=== PATIENT | male | born 1965 | race Caucasian/White ===

== ENCOUNTER 2017-05-09 14:47 | Emergency (ER) ==
[2017-05-09 14:47] VITALS: BMI 22.1
[2017-05-09 14:56] VITALS: BP 113/73; TEMP 97.5
--- NOTE | 2017-05-09 15:21 | ED.PDOC ---
General ED Provider: Dr. JOSS CLEARY Chief Complaint: Finger Pain/Injury Stated Complaint: pateint states he fell few days ago landing on the right hand jamming his right middle finger since then the pain has been severe and unable to fully extend the distal finger. Time Seen by Physician: 15:21 Mode of Arrival: Walk-In Information Source: Patient Exam Limitations: No limitations Primary Care Provider: CHAI GARCIA Nursing and Triage Documentation Reviewed and Agree: Yes Review of Systems - Review Of Systems Constitutional: Reports: No symptoms Eyes: Reports: No symptoms Ears, Nose, Mouth, Throat: Reports: No symptoms Respiratory: Reports: No symptoms Cardiac: Reports: No symptoms GI: Reports: No symptoms : Reports: No symptoms Musculoskeletal: Reports: Joint pain Skin: Reports: No symptoms Neurological: Reports: No symptoms Endocrine: Reports: No symptoms Hematologic/Lymphatic: Reports: No symptoms All Other Systems: Reviewed and Negative Past Medical History - Past Medical History Previously Healthy: Yes Endocrine: Reports: None Cardiovascular: Reports: None Respiratory: Reports: None Hematological: Reports: None Gastrointestinal: Reports: None Genitourinary: Reports: None Neuro/Psych: Reports: None Musculoskeletal: Reports: Joint Pain Cancer: Reports: None Other Pertinent Past Medical History: NOSE DEVIATED SEPTUM, APPENDECTOMY, herniated disc - Surgical History General Surgical History: Reports: Appendectomy, Orthopedic (bursa sack removed right elbow.), Other (NOSE DEVIATED SEPTUM, bursa sack removed right elbow.) - Family History Family History: Reports: Unknown - Social History Smoking Status: Current every day smoker Hx Substance Use: No Alcohol Screening: Occasionally Physical Exam - Physical Exam Appearance: Ill-appearing, Thin Ill-appearing: None Pain Distress: Moderate Eyes: NERISSA, EOMI, Conjunctiva clear ENT: Ears normal, Nose normal, Oropharynx normal Neck: Supple Respiratory: Airway patent, Breath sounds clear, Breath sounds equal, Respirations nonlabored Cardiovascular: RRR, Pulses normal, No rub, No murmur Musculoskeletal: Limited ROM Skin: Warm, Dry, Normal color Neurological: Sensation intact, Motor intact, Reflexes intact, Cranial nerves intact, Alert, Oriented Psychiatric: Anxious Critical Care Note - Critical Care Note Total Time (mins): 0 Course - Course Orders, Labs, Meds: Orders Category Date Time Status FINGER(S) RIGHT MIN 2V Stat RADS 05/09/17 15:16 Completed Vital Signs: Temp Pulse Resp BP Pulse Ox 05/09/17 14:47 97.5 F L 74 18 113/73 98 Departure - Departure Time of Disposition: 15:48 Disposition: HOME SELF-CARE Discharge Problem: Avulsion fracture of distal phalanx of finger Qualifiers: Encounter type: initial encounter Fracture type: closed Qualified Code(s): S62.639A - Displaced fracture of distal phalanx of unspecified finger, initial encounter for closed fracture Instructions: Finger Fracture (ED) Condition: Fair Pt referred to PMD for follow-up: Yes (Othro ) Additional Instructions: Call your Orthopedic doctor in 1 day to schedule an APt Use splint all the time. Prescriptions: Hydrocodone/Acetaminophen [[place] 5-325 Tablet] 1 tab PO Q6HR PRN #20 tablet PRN Reason: PAIN Allergies/Adverse Reactions: Allergies codeine Adverse Reaction (Verified 05/09/17 14:51) Home Medications: Ambulatory Orders Hydrocodone/Acetaminophen [[place] 5-325 Tablet] 1 tab PO Q6HR PRN #20 tablet Disposition Discussed With: Patient
--- NOTE | 2017-05-09 15:38 | DI ---
EXAM: Third digit of the right hand three views HISTORY: Injury, pain FINDINGS: There is an avulsion fracture off of the dorsal base of the distal phalanx with moderate di straction. The bony fragment measures about 0.4 cm and extends into the articular surfaces. There i s no yanci joint dislocation. No other injuries are seen. IMPRESSION: Avulsion fracture base of the distal phalanx.
== END 2017-05-09 15:58 | disposition home or self-care (01) ==
LOC: ED 14:47
DX: S62.639A Displaced fracture of distal phalanx of unspecified finger, initial encounter for closed fracture (principal); W19.XXXA Unspecified fall, initial encounter; F17.210 Nicotine dependence, cigarettes, uncomplicated
CPT/HCPCS: 99282

== ENCOUNTER 2017-06-05 08:12 | Inpatient (IN) ==
[2017-06-05] MEDS ORDERED: MORPHINE 10 MG/ML SYRINGE IVP STA (08:16)
[2017-06-05] MEDS ORDERED: ZOFRAN 4 MG/2 ML IVP STA (08:17)
[2017-06-05 08:25] LABS: BASOPHILS # (AUTO) 0.1 K/uL (0-0.2); BASOPHILS % (AUTO) 0.6 % (0.0-3.0); EOSINOPHILS # (AUTO) 0.4 K/ul (0.0-0.7); EOSINOPHILS % (AUTO) 3.1 % (0.0-7.0); HEMATOCRIT 42.8 % (42.0-52.0); HEMOGLOBIN 14.4 g/dl (14.0-18.0); IMMATURE GRANULOCYTE % (AUTO) 0.3 % (0.0-5.0); LYMPHOCYTES # (AUTO) 3.2 K/uL (0.60-3.4); LYMPHOCYTES % (AUTO) 22.5 (10.0-50.0); MEAN CORPUSCULAR HEMOGLOBIN 31.8 pg (27.0-31.0); MEAN CORPUSCULAR HGB CONC 33.6 (31.8-35.4); MEAN CORPUSCULAR VOLUME 94.5 fl (80.0-94.0); MONOCYTES # (AUTO) 0.8 K/uL (0.4-2.0); MONOCYTES % (AUTO) 5.4 (0-10); NEUTROPHILS # (AUTO) 9.8 K/ul (2.0-6.9); NEUTROPHILS % (AUTO) 68.1; PLATELET COUNT 331 10^3/uL (140-440); RED BLOOD COUNT 4.53 10^6/ul (4.70-6.10); WHITE BLOOD COUNT 14.36 K/ul (4.2-10.2)
[2017-06-05 09:01] LABS: ALANINE AMINOTRANSFERASE 76 U/L (12-78); ALBUMIN 4.1 g/dL (3.4-5.0); ALBUMIN/GLOBULIN RATIO 1.37; ALKALINE PHOSPHATASE 115 U/L (50-136); ANION GAP 12.3; ASPARTATE AMINO TRANSFERASE 125 U/L (15-37); BILIRUBIN,TOTAL 0.96 mg/dL (0.00-1.20); BLOOD UREA NITROGEN 18 mg/dL (7-18); CALCIUM 9.6 mg/dL (8.2-10.2); CARBON DIOXIDE 27 mmol/L (21-32); CHLORIDE 104 mmol/L (98-107); CREATINE KINASE 133 U/L; GLUCOSE 206 mg/dL (70-100); POTASSIUM 3.3 mmol/L (3.5-5.1); SODIUM 140 mmol/L (136-145); TOTAL PROTEIN 7.1 g/dL (6.4-8.2)
[2017-06-05 09:17] LABS: AMYLASE 3048 U/L (25-115)
--- NOTE | 2017-06-05 09:28 | CT ---
EXAM: CT abdomen pelvis with contrast TECHNIQUE: Helical axial CT of the abdomen and pelvis was performed with contrast with coronal and s agittal reconstructions. COMPARISON: Chest CT from today HISTORY: Abdominal pain FINDINGS: There is enlargement and surrounding edema involving the entire pancreas consistent with acute inters titial pancreatitis. There is no evidence for walled off necrosis or pseudocyst. There is no free air, free fluid or bowel wall thickening or edema or pathologic lymph nodes or obstr uction or ileus. The liver, spleen, and adrenal glands show no acute abnormality. Lung bases are well-aerated. There is no hiatal hernia. There is some sludge in the gallbladder. There is no inflammation. There is no biliary or pancreatic ductal dilatation. There are no suspicious renal masses or large cysts and no hydronephrosis. There are no kidney stones . Both ureters demonstrate normal course and caliber. There is no filling defect in the urinary blad onesimo. There is a high riding testicle on the right. The appendix is not definitely seen. There are no colonic diverticula. There are no abdominal wall h ernias. There is fairly extensive calcific atherosclerosis of the aorta with no aneurysm. There are n o acute osseous abnormalities. IMPRESSION: 1. Acute interstitial pancreatitis with no evidence for pseudocyst or walled off necrosis. 2. Gallbladder sludge with no inflammation. Report called to Dr. Hwang
--- NOTE | 2017-06-05 09:30 | CT ---
EXAM: CT chest without contrast TECHNIQUE: Helical axial CT of the chest was performed without contrast with coronal and sagittal rec onstructions. COMPARISON: CT abdomen pelvis from same day HISTORY: Abdominal pain FINDINGS: Lung parenchyma: There is no mass or nodule or large effusion or infiltrate. There is emphysematous c hange in the lung apices. Mediastinum: There are a few nonpathologic mediastinal lymph nodes. There is old granulomatous disea se. No significant coronary calcifications. There is no pericardial effusion. There is calcific ather osclerosis of the aorta. There is no aortic aneurysm. Upper Abdomen: Acute pancreatitis per CT abdomen pelvis report. Osseous structures: Nothing acute. Surrounding soft tissues including the thyroid gland are normal. No supraclavicular or axillary adeno kenny. IMPRESSION: 1. No acute abnormality in the chest. 2. Emphysema. 3. Acute pancreatitis. See CT pelvis report for details. Report called to Dr. Hwang
[2017-06-05 09:32] LABS: CREATINE KINASE MB 3.8 ng/ml (0.0-3.6)
--- NOTE | 2017-06-05 09:39 | US ---
EXAM: Limited right upper quadrant ultrasound. HISTORY: Right upper quadrant pain. COMPARISON: CT from same day TECHNIQUE: Farnsworth scale, color and Doppler ultrasound evaluation of the right upper quadrant. FINDINGS: LIVER: There is heterogeneous echotexture without solid mass lesions or intrahepatic ductal dilatatio n. Portal venous flow is antegrade. Liver size is 10.5 x 16.2 cm. GALLBLADDER: Distended there are small stones and sludge. Gallbladder wall thickness is 0.4 cm. COMMON BILE DUCT: 0.5 cm. PANCREAS: Not well seen There is no ascites or visualized adenopathy. IMPRESSION: 1. Distended gallbladder with multiple small stones and sludge. No definite acute inflammation is s een however.
[2017-06-05] MEDS ORDERED: ZOFRAN 4 MG/2 ML IVP PRN (09:50)
[2017-06-05] MEDS ORDERED: MORPHINE 4 MG/ML VIAL IVP PRN (09:50)
--- NOTE | 2017-06-05 09:54 | ED.PDOC ---
General ED Provider: Dr. JC ARAUJO Chief Complaint: Abdominal Pain Stated Complaint: abdominal pain epigastric Time Seen by Physician: 08:19 Mode of Arrival: Walk-In Information Source: Patient Exam Limitations: No limitations Primary Care Provider: CHAI GARCIA Nursing and Triage Documentation Reviewed and Agree: Yes (DENIED TRAUMA AND ETOH ABUSE OR USE ) GI Complaint Exam - Abdominal Pain Complaint/Exam Onset: Sudden Duration: TODAY Symptoms Are: Still present Timing: Constant Initial Severity: Severe Current Severity: Severe Location of Pain: Epigastric Radiates To: Denies: Chest, Back, Flank, LLQ, RLQ, Inguinal Character: Reports: Cramping Aggravating: Reports: Movement, Food, Position Alleviating: Reports: Rest, Position Associated Signs and Symptoms: Reports: Decreased appetite, Nausea. Denies: Diaphoresis, Fever, Cough, Chest pain, Dizziness, Back pain, Constipation, Blood in stool, Dysuria, Urinary frequency, Decreased urine output, Discharge, Vomiting, Diarrhea, Decreased activity Related History: Reports: Similar episode AAA Risk Factors: Reports: None Cardiac Risk Factors: Reports: None Testicular Torsion Risk Factors: Reports: None Surgical Obstruction Risk Factors: Reports: None Related Surgical History: Reports: None Abdominal Findings: Present: None Differential Diagnoses: Appendicitis, Bowel Obstruction, Constipation, Diverticulitis, Gastroenteritis, Hepatitis, Pancreatitis, Renal Colic, Ureteral Stone Review of Systems - Review Of Systems Constitutional: Reports: No symptoms Eyes: Reports: No symptoms Ears, Nose, Mouth, Throat: Reports: No symptoms Respiratory: Reports: No symptoms Cardiac: Reports: No symptoms GI: Reports: Abdominal pain, Nausea : Reports: No symptoms Musculoskeletal: Reports: No symptoms Skin: Reports: No symptoms Neurological: Reports: No symptoms Endocrine: Reports: No symptoms Hematologic/Lymphatic: Reports: No symptoms All Other Systems: Reviewed and Negative Past Medical History - Past Medical History Previously Healthy: Yes Endocrine: Reports: None Cardiovascular: Reports: None Respiratory: Reports: None Hematological: Reports: None Gastrointestinal: Reports: None Genitourinary: Reports: None Neuro/Psych: Reports: None Musculoskeletal: Reports: Joint Pain Cancer: Reports: None Other Pertinent Past Medical History: NOSE DEVIATED SEPTUM, APPENDECTOMY, herniated disc - Surgical History General Surgical History: Reports: Appendectomy, Orthopedic (bursa sack removed right elbow.), Other (NOSE DEVIATED SEPTUM, bursa sack removed right elbow.) - Family History Family History: Reports: Unknown - Social History Smoking Status: Current some day smoker Hx Substance Use: No Alcohol Screening: None - Immunizations Tetanus Shot up to Date: No Physical Exam - Physical Exam Appearance: Well-nourished Ill-appearing: Moderate Pain Distress: Severe Eyes: NERISSA, EOMI, Conjunctiva clear ENT: Ears normal, Nose normal, Oropharynx normal Respiratory: Airway patent, Breath sounds clear, Breath sounds equal, Respirations nonlabored Cardiovascular: RRR, Pulses normal, No rub, No murmur GI/: Tender (EPIGASTRIC WITH GAURDING ) Musculoskeletal: Normal strength, ROM intact, No edema, No calf tenderness Skin: Warm, Dry, Normal color Neurological: Sensation intact, Motor intact, Reflexes intact, Cranial nerves intact, Alert, Oriented Psychiatric: Affect appropriate, Mood appropriate Interpretation - Radiology Interpretation Radiology Interpretation By: Radiologist Radiology Results: Positive (ACUTE PANCERATITIS) Physician Notification - Case Discussed Physician Notified: LILI Time of Notification: 09:55 (BARRY) Admit To: Inpatient Critical Care Note - Critical Care Note Total Time (mins): 0 Course - Course Hematology/Chemistry: 06/05/17 08:18 06/05/17 08:18 Orders, Labs, Meds: Lab Review 06/05/17 06/05/17 08:18 08:18 WBC 14.36 H RBC 4.53 L Hgb 14.4 Hct 42.8 MCV 94.5 H MCH 31.8 H MCHC 33.6 RDW Coeff of Rosanne 12.4 Plt Count 331 Immature Gran % (Auto) 0.3 Neut % (Auto) 68.1 Lymph % (Auto) 22.5 [place] % (Auto) 5.4 Eos % (Auto) 3.1 Baso % (Auto) 0.6 Immature Gran # (Auto) 0.1 Neut # 9.8 H Lymph # 3.2 [place] # 0.8 Eos # 0.4 Baso # 0.1 Sodium 140 Potassium 3.3 L Chloride 104 Carbon Dioxide 27 Anion Gap 12.3 BUN 18 Creatinine 1.20 H Estimated GFR (MDRD) 64.00 BUN/Creatinine Ratio 15.00 Glucose 206 H Calcium 9.6 Total Bilirubin 0.96 AST 125 H ALT 76 Alkaline Phosphatase 115 Total Creatine Kinase 133 CK-MB (CK-2) 3.8 H CK-MB (CK-2) % 2.47270 Troponin I < 0.0100 Total Protein 7.1 Albumin 4.1 Globulin 3.0 Albumin/Globulin Ratio 1.37 Amylase 3048 H* Lipase Pending Orders Category Date Time Status ADMIT PATIENT INPATIENT .TO MEDSURG (MONITORED BED) ADMISSION 06/05/17 09: 47 Ordered EKG-(ED ONLY) Stat CARDIO 06/05/17 08:32 Completed EKG-(ED ONLY) Stat CARDIO 06/05/17 08:32 Completed EKG-(IP & OP ONLY) DAILY CARDIO 06/06/17 06:00 Ordered EKG-(IP & OP ONLY) DAILY CARDIO 06/07/17 06:00 Ordered EKG-(IP & OP ONLY) DAILY CARDIO 06/08/17 06:00 Ordered ACTIVITY .BR with BRP CARE 06/05/17 09:47 Ordered INTAKE & OUTPUT Q8HR CARE 06/05/17 09:47 Ordered NPO REMINDER: IMAGING ONCE CARE 06/05/17 08:18 Ordered NPO REMINDER: LAB TEST ONCE CARE 06/05/17 09:51 Ordered TELEMETRY MONITORING TELE CARE 06/05/17 09:48 Ordered VITAL SIGNS Q8HR CARE 06/05/17 09:47 Ordered NOTHING BY MOUTH DIETARY 06/05/17 Lunch Ordered ED IV/MEDIPORT/POWERPORT .ONCE EMERGENCY 06/05/17 08:15 Ordered AMYLASE Stat LAB 06/05/17 08:13 Ordered BLOOD CULTURE (ED ONLY) Stat LAB 06/05/17 Ordered CBC W/ AUTO DIFF DAILY@0600 LAB 06/06/17 06:00 Ordered CBC W/ AUTO DIFF DAILY@0600 LAB 06/07/17 06:00 Ordered CBC W/ AUTO DIFF Stat LAB 06/05/17 08:13 Ordered COMPREHENSIVE METABOLIC PANEL DAILY@0600 LAB 06/06/17 06:00 Ordered COMPREHENSIVE METABOLIC PANEL DAILY@0600 LAB 06/07/17 06:00 Ordered COMPREHENSIVE METABOLIC PANEL Stat LAB 06/05/17 08:13 Ordered CREATINE KINASE Stat LAB 06/05/17 08:13 Ordered ETOH LEVEL [BLOOD ALCOHOL] Stat LAB 06/05/17 09:51 Ordered LIPASE Stat LAB 06/05/17 08:13 Ordered LIPID PANEL Stat LAB 06/05/17 09:51 Ordered TROPONIN I Stat LAB 06/05/17 08:13 Ordered 0.9 % Sodium Chloride [Saline Flush] MEDS 06/05/17 08:15 Ordered 1 syr IVF PRN PRN Morphine Sulfate [Morphine 10 mg/ml Syringe] MEDS 06/05/17 08:16 Stat 4 mg IVP ONCE STA Morphine Sulfate [Morphine 4 mg/ml Vial] MEDS 06/05/17 09:50 Ordered 4 mg IVP Q6H PRN Ondansetron HCl/Pf [Zofran 4 mg/2 ml] MEDS 06/05/17 08:17 Stat 4 mg IVP ONCE STA Ondansetron HCl/Pf [Zofran 4 mg/2 ml] MEDS 06/05/17 09:50 Ordered 4 mg IVP Q6H PRN Piperacillin Sodium/Tazobactam [Zosyn 3.375 gm] 3.375 MEDS 06/05/17 12:00 Ordered gm 0.9 % Sodium Chloride [Sodium Chloride] 100 ml IV Q6HR Sodium Chloride 0.9% [Sodium Chloride] 1,000 ml MEDS 06/05/17 10:00 Ordered IV 75 mls/hr CT ABDOMEN/PELVIS WO CONTRAST Stat RADS 06/05/17 08:[address] CHEST W/O CONTRAST Stat RADS 06/05/17 08:13 Ordered ULTRASOUND ABDOMEN, RT. UPPER QUAD [U/S ABDOMEN, RT. RADS 06/05/17 08:18 Ordered UPPER QUAD] Stat Medications Generic Name Dose Route Start Last Admin Trade Name Freq PRN Reason Stop Dose Admin Sodium Chloride 1,000 mls @ 75 mls/hr 06/05/17 10:00 Sodium Chloride IV .[id number] YUNG Piperacillin Sod/Tazobactam 100 mls @ 100 mls/hr 06/05/17 12:00 Sod 3.375 gm/ Sodium Chloride IV Q6HR YUNG Morphine Sulfate 4 mg 06/05/17 09:50 Morphine 4 Mg/Ml Vial IVP Q6H PRN Analgesia Ondansetron HCl 4 mg 06/05/17 09:50 Zofran 4 Mg/2 Ml IVP Q6H PRN Nausea / Vomiting Sodium Chloride 1 syr 06/05/17 08:15 Saline Flush IVF PRN PRN To flush IV Discontinued Medications Generic Name Dose Route Start Last Admin Trade Name Freq PRN Reason Stop Dose Admin Morphine Sulfate 4 mg 06/05/17 08:16 06/05/17 08:23 Morphine 10 Mg/Ml Syringe IVP 06/05/17 08:17 4 mg ONCE STA Administration Ondansetron HCl 4 mg 06/05/17 08:17 06/05/17 08:22 Zofran 4 Mg/2 Ml IVP 06/05/17 08:18 4 mg ONCE STA Administration Vital Signs: Temp Pulse Resp BP Pulse Ox 06/05/17 08:13 95 F L 50 L 16 105/64 98 Departure - Departure Time of Disposition: 09:54 Disposition: ADMITTED INPATIENT Discharge Problem: Pancreatitis Qualifiers: Chronicity: acute Pancreatitis type: unspecified pancreatitis type Acute pancreatitis complication: unspecified Qualified Code(s): K85.90 - Acute pancreatitis without necrosis or infection, unspecified Instructions: Pancreatitis (ED) Condition: Good Pt referred to PMD for follow-up: Yes Allergies/Adverse Reactions: Allergies codeine Adverse Reaction (Verified 05/09/17 14:51) Home Medications: Ambulatory Orders 1 [No Reported Medications] 06/05/17
[2017-06-05 10:08] LABS: CHOL/HDL RATIO 4.4 (4.5-6.4)
[2017-06-05] MEDS ORDERED: ZOSYN 3.375 GM 3.375 GM in SODIUM CHLORIDE 100 ML IV STA (10:49)
[2017-06-05] MEDS: SODIUM CHLORIDE 1,000 ML IV SCH (10:50)
[2017-06-05 10:52] VITALS: BMI 19.3
[2017-06-05] MEDS: DILAUDID 2 MG/ML SYRINGE IVP PRN ×3 (11:03→21:13)
[2017-06-05 13:11] LABS: ALBUMIN 3.9 g/dL (3.4-5.0); ALBUMIN/GLOBULIN RATIO 1.18; ANION GAP 10.4; BILIRUBIN,TOTAL 0.39 mg/dL (0.00-1.20); BUN/CREATININE RATIO 17.14; CALCIUM 9.6 mg/dL (8.2-10.2); CREATININE 1.05 mg/dL (0.60-1.10); POTASSIUM 4.4 mmol/L (3.5-5.1); TOTAL PROTEIN 7.2 g/dL (6.4-8.2)
[2017-06-05 14:59] LABS: LIPASE 14379 U/L (8-78)
[2017-06-05] MEDS: PROTONIX IV IVP SCH ×2 (15:07→21:08)
[2017-06-05] MEDS: CARAFATE PO SCH ×3 (15:12→21:08)
[2017-06-05] MEDS: ZOSYN 3.375 GM 3.375 GM in SODIUM CHLORIDE 100 ML IV SCH ×2 (17:58→23:29)
[2017-06-06] MEDS: DILAUDID 2 MG/ML SYRINGE IVP PRN ×6 (01:14→20:26)
[2017-06-06] MEDS: SODIUM CHLORIDE 1,000 ML IV SCH ×2 (03:01→18:15)
[2017-06-06] MEDS: ZOSYN 3.375 GM 3.375 GM in SODIUM CHLORIDE 100 ML IV SCH ×3 (05:30→18:08)
[2017-06-06] MEDS: CARAFATE PO SCH ×4 (05:31→20:20)
[2017-06-06 06:28] LABS: BASOPHILS % (AUTO) 0.2 % (0.0-3.0); EOSINOPHILS % (AUTO) 0.1 % (0.0-7.0); HEMATOCRIT 46.8 % (42.0-52.0); HEMOGLOBIN 15.9 g/dl (14.0-18.0); IMMATURE GRANULOCYTE % (AUTO) 0.4 % (0.0-5.0); LYMPHOCYTES # (AUTO) 1.7 K/uL (0.60-3.4); LYMPHOCYTES % (AUTO) 10.2 (10.0-50.0); MEAN CORPUSCULAR VOLUME 94.2 fl (80.0-94.0); MONOCYTES # (AUTO) 0.7 K/uL (0.4-2.0); MONOCYTES % (AUTO) 4.2 (0-10); NEUTROPHILS # (AUTO) 13.8 K/ul (2.0-6.9); NEUTROPHILS % (AUTO) 84.9; PLATELET COUNT 263 10^3/uL (140-440); RED BLOOD COUNT 4.97 10^6/ul (4.70-6.10); WHITE BLOOD COUNT 16.21 K/ul (4.2-10.2)
[2017-06-06 06:50] LABS: ALBUMIN 3.5 g/dL (3.4-5.0); ALBUMIN/GLOBULIN RATIO 1.13; ANION GAP 12.2; BILIRUBIN,TOTAL 0.53 mg/dL (0.00-1.20); BUN/CREATININE RATIO 16.83; CALCIUM 9.1 mg/dL (8.2-10.2); CREATININE 1.01 mg/dL (0.60-1.10); POTASSIUM 4.2 mmol/L (3.5-5.1); TOTAL PROTEIN 6.6 g/dL (6.4-8.2)
[2017-06-06] MEDS: PROTONIX IV IVP SCH ×2 (08:36→20:20)
[2017-06-06] MEDS ORDERED: CARDIZEM INJ IVP STA (17:58)
[2017-06-06] MEDS: LOVENOX SUBCUT SCH (18:07)
[2017-06-06] MEDS ORDERED: CARDIZEM INJ IVP PRN (19:06)
[2017-06-07] MEDS: DILAUDID 2 MG/ML SYRINGE IVP PRN ×6 (00:18→21:03)
[2017-06-07] MEDS: ZOSYN 3.375 GM 3.375 GM in SODIUM CHLORIDE 100 ML IV SCH ×4 (00:18→17:59)
[2017-06-07] MEDS: CARAFATE PO SCH ×4 (05:41→21:03)
[2017-06-07 07:46] LABS: BASOPHILS # (AUTO) 0.1 K/uL (0-0.2); BASOPHILS % (AUTO) 0.3 % (0.0-3.0); EOSINOPHILS % (AUTO) 0.1 % (0.0-7.0); HEMATOCRIT 41.6 % (42.0-52.0); HEMOGLOBIN 14.1 g/dl (14.0-18.0); IMMATURE GRANULOCYTE % (AUTO) 0.7 % (0.0-5.0); LYMPHOCYTES # (AUTO) 1.5 K/uL (0.60-3.4); LYMPHOCYTES % (AUTO) 8.6 (10.0-50.0); MEAN CORPUSCULAR HEMOGLOBIN 31.6 pg (27.0-31.0); MEAN CORPUSCULAR HGB CONC 33.9 (31.8-35.4); MEAN CORPUSCULAR VOLUME 93.3 fl (80.0-94.0); MONOCYTES # (AUTO) 0.9 K/uL (0.4-2.0); MONOCYTES % (AUTO) 5.2 (0-10); NEUTROPHILS # (AUTO) 14.8 K/ul (2.0-6.9); NEUTROPHILS % (AUTO) 85.1; PLATELET COUNT 213 10^3/uL (140-440); RED BLOOD COUNT 4.46 10^6/ul (4.70-6.10); WHITE BLOOD COUNT 17.42 K/ul (4.2-10.2)
[2017-06-07 08:09] LABS: ALBUMIN/GLOBULIN RATIO 0.91; ANION GAP 13.8; BILIRUBIN,TOTAL 0.86 mg/dL (0.00-1.20); BUN/CREATININE RATIO 15.85; CALCIUM 8.8 mg/dL (8.2-10.2); CREATININE 0.82 mg/dL (0.60-1.10); POTASSIUM 3.8 mmol/L (3.5-5.1); TOTAL PROTEIN 6.3 g/dL (6.4-8.2)
[2017-06-07] MEDS: LOVENOX SUBCUT SCH (08:45)
[2017-06-07] MEDS: PROTONIX IV IVP SCH ×2 (09:06→21:02)
--- NOTE | 2017-06-07 09:52 | CT ---
Exam: CT of the abdomen pelvis without intravenous contrast. Comparison: 06/05/2017. Reason for exam: Abdominal pain. FINDINGS: Image interpretation is limited by the lack of intravenous contrast administration. Developing air space opacity in the left lung base with bilateral pleural effusions. High density material is seen within the stomach. The liver, spleen, and adrenal glands appear grossl y unremarkable within limitations of a noncontrasted evaluation. Inflammatory changes are seen in the pancreatic head and adjacent duodenum with surrounding free flui d. There is a new finding of pericholecystic free fluid that may be reactive from the adjacent pancr eatitis or represent gallbladder disease. No hydronephrosis, hydroureter, or nephrolithiasis in either kidney. There is atherosclerotic disease of the aorta and distal arterial vasculature. No focal small bowel dilatation or transition point. There is a moderate amount of pelvic free fluid . No intra-abdominal free air The bladder appears grossly unremarkable. No suspicious appearing osteoblastic or osteolytic lesion. Impression: 1. Bilateral pleural effusions with a developing left lower lobe airspace opacity consistent with pn eumonia. 2. Similar appearing inflammatory changes in the mid abdomen consistent with pancreatitis. Evaluati on is limited by the lack of intravenous contrast administration. 3. A new finding of pericholecystic free fluid. Imaging findings may represent acute gallbladder pa thology or reactivity from the adjacent pancreatitis. If clinical concern exists, ultrasound evaluat ion of the right upper quadrant may be performed for further characterization
[2017-06-07] MEDS: SODIUM CHLORIDE 1,000 ML IV SCH ×2 (13:50→13:53)
[2017-06-07] MEDS: DUONEB NEB SCH ×2 (16:55→23:09)
[2017-06-07] MEDS ORDERED: DUONEB NEB ONE (16:55)
[2017-06-08] MEDS: ZOSYN 3.375 GM 3.375 GM in SODIUM CHLORIDE 100 ML IV SCH ×3 (00:09→14:39)
[2017-06-08] MEDS: DILAUDID 2 MG/ML SYRINGE IVP PRN ×7 (00:12→22:43)
[2017-06-08] MEDS: DUONEB NEB SCH ×4 (05:15→20:42)
[2017-06-08 05:21] LABS: BASOPHILS % (AUTO) 0.2 % (0.0-3.0); EOSINOPHILS # (AUTO) 0.2 K/ul (0.0-0.7); EOSINOPHILS % (AUTO) 1.3 % (0.0-7.0); HEMATOCRIT 35.4 % (42.0-52.0); HEMOGLOBIN 12.1 g/dl (14.0-18.0); IMMATURE GRANULOCYTE % (AUTO) 0.7 % (0.0-5.0); LYMPHOCYTES # (AUTO) 1.6 K/uL (0.60-3.4); LYMPHOCYTES % (AUTO) 11.6 (10.0-50.0); MEAN CORPUSCULAR HEMOGLOBIN 31.9 pg (27.0-31.0); MEAN CORPUSCULAR HGB CONC 34.2 (31.8-35.4); MEAN CORPUSCULAR VOLUME 93.4 fl (80.0-94.0); MONOCYTES # (AUTO) 0.8 K/uL (0.4-2.0); MONOCYTES % (AUTO) 5.6 (0-10); NEUTROPHILS # (AUTO) 10.9 K/ul (2.0-6.9); NEUTROPHILS % (AUTO) 80.6; PLATELET COUNT 177 10^3/uL (140-440); RED BLOOD COUNT 3.79 10^6/ul (4.70-6.10); WHITE BLOOD COUNT 13.47 K/ul (4.2-10.2)
[2017-06-08 05:37] LABS: ALBUMIN 2.7 g/dL (3.4-5.0); ALBUMIN/GLOBULIN RATIO 0.87; ANION GAP 11.2; BILIRUBIN,TOTAL 0.7 mg/dL (0.00-1.20); BUN/CREATININE RATIO 13.92; CALCIUM 8.4 mg/dL (8.2-10.2); CREATININE 0.79 mg/dL (0.60-1.10); POTASSIUM 3.2 mmol/L (3.5-5.1); TOTAL PROTEIN 5.8 g/dL (6.4-8.2)
[2017-06-08] MEDS: SODIUM CHLORIDE 1,000 ML IV SCH ×2 (05:59→21:11)
[2017-06-08] MEDS: CARAFATE PO SCH ×4 (06:00→21:11)
[2017-06-08] MEDS: PROTONIX IV IVP SCH ×2 (08:37→21:11)
[2017-06-08] MEDS: LOVENOX SUBCUT SCH (08:38)
[2017-06-08] MEDS: K-DUR PO SCH (14:40)
[2017-06-08] MEDS: ROCEPHIN 1 GM in SODIUM CHLORIDE 50 ML IV SCH (15:48)
[2017-06-08 15:53] LABS: CREATINE KINASE 156 U/L
[2017-06-08 15:58] LABS: CREATINE KINASE MB 1.1 ng/ml (0.0-3.6)
[2017-06-08] MEDS: FLAGYL 500 MG/100 ML 500 MG in PREMIX 100 ML NS 1 BAG IV SCH ×2 (16:46→21:11)
[2017-06-09] MEDS: DILAUDID 2 MG/ML SYRINGE IVP PRN ×5 (03:41→20:35)
[2017-06-09] MEDS: DUONEB NEB SCH ×4 (04:50→23:50)
[2017-06-09 04:51] LABS: BASOPHILS % (AUTO) 0.3 % (0.0-3.0); EOSINOPHILS # (AUTO) 0.4 K/ul (0.0-0.7); EOSINOPHILS % (AUTO) 3.3 % (0.0-7.0); HEMATOCRIT 32.1 % (42.0-52.0); IMMATURE GRANULOCYTE % (AUTO) 0.6 % (0.0-5.0); LYMPHOCYTES # (AUTO) 1.6 K/uL (0.60-3.4); LYMPHOCYTES % (AUTO) 14.3 (10.0-50.0); MEAN CORPUSCULAR HEMOGLOBIN 32.1 pg (27.0-31.0); MEAN CORPUSCULAR HGB CONC 34.3 (31.8-35.4); MEAN CORPUSCULAR VOLUME 93.6 fl (80.0-94.0); MONOCYTES # (AUTO) 0.7 K/uL (0.4-2.0); MONOCYTES % (AUTO) 6.5 (0-10); NEUTROPHILS # (AUTO) 8.5 K/ul (2.0-6.9); PLATELET COUNT 181 10^3/uL (140-440); RED BLOOD COUNT 3.43 10^6/ul (4.70-6.10); WHITE BLOOD COUNT 11.39 K/ul (4.2-10.2)
[2017-06-09 05:21] LABS: ALBUMIN 2.5 g/dL (3.4-5.0); ALBUMIN/GLOBULIN RATIO 0.76; ANION GAP 12.3; BILIRUBIN,TOTAL 0.55 mg/dL (0.00-1.20); BUN/CREATININE RATIO 11.42; CALCIUM 8.3 mg/dL (8.2-10.2); CREATININE 0.7 mg/dL (0.60-1.10); POTASSIUM 3.3 mmol/L (3.5-5.1); TOTAL PROTEIN 5.8 g/dL (6.4-8.2)
[2017-06-09] MEDS: CARAFATE PO SCH ×4 (05:43→20:35)
[2017-06-09] MEDS: FLAGYL 500 MG/100 ML 500 MG in PREMIX 100 ML NS 1 BAG IV SCH ×3 (05:43→20:35)
[2017-06-09] MEDS: K-DUR PO SCH (09:21)
[2017-06-09] MEDS: LOVENOX SUBCUT SCH (09:21)
[2017-06-09] MEDS: ROCEPHIN 1 GM in SODIUM CHLORIDE 50 ML IV SCH (09:21)
[2017-06-09] MEDS: PROTONIX IV IVP SCH ×2 (09:21→20:35)
--- NOTE | 2017-06-09 10:01 | HP ---
DATE OF SERVICE: 06/05/17 CHIEF COMPLAINT: Abdominal pain. HISTORY OF PRESENT ILLNESS: This is a 51-year-old male who woke up in the middle of the night with epigastric pain, severe, 10/10, nausea and vomiting came to the emergency room seen by Dr. Hwang in the emergency room. BP was 105/64. Labs were done which showed white count left shift with 14,000, potassium 3.3, amylase 3000, lipase 19,000. CT scan of abdomen and pelvis showed acute pancreatitis. Right upper quadrant ultrasound did show the gallbladder stones, cholelithiasis but no biliary obstruction. At that time, the patient was admitted to the hospital for IV hydration and pain management for acute pancreatis. REVIEW OF SYSTEMS: CONSTITUTIONAL: No fever, no chills. Jittery feeling. HEENT: Normal. ENDOCRINE: No weight gain; no weight loss. CVS: No chest pain. No PND, no orthopnea. No shortness of breath. No PND, no orthopnea. RESPIRATORY: No cough, no congestion. No hemoptysis. GI: Abdominal pain. Nausea, No vomiting. No melena. : No hematuria. No polyuria. MUSCULOSKELETAL: No joint swelling. PSYCHIATRIC: Not anxious. No depression. No suicidal thoughts. No homicidal thoughts. SKIN: Intact, no open lesions. PAST MEDICAL HISTORY: Deviated nasal septum History of kidney stones PAST SURGICAL HISTORY: Appendectomy Septoplasty Excision of bursa on elbow PERSONAL HISTORY: The patient does smoke. No alcohol. No drugs. Works in the [employer]. FAMILY HISTORY: High blood pressure. MEDICATIONS: (HOME) None ALLERGIES: CODEINE PHYSICAL EXAMINATION: V/S: BP 105/64, respiratory rate 16, heart rate 50, temperature 95.0. HEENT: Atraumatic, normocephalic. No scleral icterus. Pallor positive . Mucosa dry. NECK: Supple. No JVD, no bruit. No lymphadenopathy. No thyromegaly. HEART: S1, S2 normal. No murmur. No cyanosis or clubbing. No ascites. LUNGS: Decreased air entry; basilar crackles. No rales or rhonchi. ABDOMEN: Soft, epigastric discomfort is present. Bowel sounds are sluggish.. No CVA tenderness. No rigidity or guarding. EXTREMITIES: No cyanosis, clubbing or pedal edema. MUSCULOSKELETAL: Normal joints, no swelling. NEUROLOGIC: The patient is awake and alert. SKIN: Intact; no open lesions. LYMPHATIC: No lymph nodes palpable. LABS: White count 14.36, hemoglobin 14.4, hematocrit 42.8, platelet count 331. Sodium 140, potassium 3.3, chloride 104, bicarb 27, BUN 18, creatinine 1.20, glucose 206. AST 125, total bilirubin 0.96. Amylase 3,048, lipase 19,904. Blood alcohol is negative. CT abdomen and pelvis showed acute pancreatitis, gallbladder with gallbladder stones. ASSESSMENT: 1. ACUTE PANCREATITIS MOSTLY PASSING GALLSTONE 2. DEHYDRATION 3. HYPOKALEMIA PLAN: 1. Admit the patient to the regular floor 2. CBC, CMP today and daily 3. Cardiac enzymes and troponin 4. Dilaudid 1 to 2 mg q.6hr p.r.n. 5. Piperacillin/Tazobactam 3,37 q.6hr 6. IV fluids 7. Carafate 8. Protonix 40 mg p.o. b.i.d. 9. Zofran 10. Daily I & O TIME SPENT: MORE THAN 75 minutes today MTDD
--- NOTE | 2017-06-09 11:49 | PN ---
DATE OF SERVICE: 06/06/17 SUBJECTIVE: This patient was admitted with acute pancreatitis. Amylase and lipase is getting better. The patient is still having pain needing Dilaudid. REVIEW OF SYSTEMS: CONSTITUTIONAL: No fever, no chills. HEENT: Normal. ENDOCRINE: No weight gain, no weight loss. CVS: No angina symptoms. No CHF symptoms. No palpitations. No atypical chest pain for CAD. No shortness of breath. No PND, no orthopnea. RESPIRATORY: No cough, no hemoptysis. GI: Epigastric pain. No nausea, no vomiting. : No hematuria. No polyuria. MUSCULOSKELETAL:. No joint swelling. PSYCHIATRIC: Not anxious. No depression. No suicidal thoughts. No homicidal thoughts. SKIN: Intact. No rash. PHYSICAL EXAMINATION: V/S: BP 130/83, respiratory rate 22, heart rate 112, temperature 99.8, saturation 97 on room air. HEENT: Normocephalic, atraumatic. Mucosa dry, pallor positive, no icterus. NECK: Supple. No JVD, no carotid bruit. No lymphadenopathy. LUNGS: Clear to auscultation. No rales or rhonchi. HEART: S1, S2 normal. No S3. No murmur, gallop or regurgitation. ABDOMEN: Soft. Epigastric discomfort and tenderness present. Bowel sounds are not present. No rigidity. No rebound or guarding. No CVA tenderness. EXTREMITIES: No clubbing, cyanosis or pedal edema. MUSCULOSKELETAL: No joint swelling. NEUROLOGIC: Awake, alert, oriented times three. No focal deficit. LYMPHATIC: No lymph nodes palpable. SKIN: Intact. LABS: White count 16.21, hemoglobin 15.2, hematocrit 46.8, platelet count 263. Sodium 138, potassium 4.2, chloride 103, bicarb 27, BUN 17, creatinine 1.01. Amylase is 597, lipase 714. ASSESSMENT: 1. ACUTE SEVERE PANCREATITIS 2. CHOLELITHIASIS 3. SINUS TACHYCARDIA PLAN: 1. Cardizem 5 mg IV push times one dose, may repeat if the heart rate goes more than 120 and the blood pressure and do not give if systolic blood pressure is less than 100. 2. Continue IV fluids 3. Lovenox for DVT prophylaxis 4. Zosyn 5. IV fluids 6. Protonix 7. Will get CT scan of abdominal and pelvis in the morning TIME SPENT: More than 35 minutes MTDD
[2017-06-09] MEDS: SODIUM CHLORIDE 1,000 ML IV SCH (11:50)
--- NOTE | 2017-06-09 11:58 | PN ---
DATE OF SERVICE: 06/07/17 SUBJECTIVE: Admitted with acute pancreatitis, still having pain rated 9 to 10 out of 10, not passing gas. He was able to walk some today. He has needed Dilaudid 1 to 2 mg every [address] scan showed acute pancreatitis, pericholecystic fluid and inflammation. REVIEW OF SYSTEMS: CONSTITUTIONAL: No fever, no chills. HEENT: Normal. ENDOCRINE: No weight gain, no weight loss. CVS: No angina symptoms. No CHF symptoms. No palpitations. No atypical chest pain for CAD. No shortness of breath. No PND, no orthopnea. RESPIRATORY: No cough, no hemoptysis. GI: No nausea, no vomiting. Abdominal pain. : No hematuria. No polyuria. MUSCULOSKELETAL:. No joint swelling. PSYCHIATRIC: Not anxious. No depression. No suicidal thoughts. No homicidal thoughts. SKIN: Intact. No rash. PHYSICAL EXAMINATION: V/S: Temperature 99.9, BP 135/81, respiratory rate 20, heart rate 108, saturation 98. HEENT: Normocephalic, atraumatic. Mucosa dry. NECK: Supple. No JVD, no carotid bruit. No lymphadenopathy. LUNGS: Decreased entry, basilar crackles. No rales or rhonchi. HEART: Sinus tachy. S1, S2 normal. No S3. No murmur, gallop or regurgitation. ABDOMEN: Soft, epigastric tenderness. Bowel sounds are not present. No rigidity. No rebound or guarding. No CVA tenderness. EXTREMITIES: No clubbing, cyanosis or pedal edema. MUSCULOSKELETAL: No joint swelling. NEUROLOGIC: Awake, alert, oriented times three. No focal deficit. LYMPHATIC: No lymph nodes palpable. SKIN: Intact. LABS: Sodium 137, potassium 3.8, chloride 99, bicarb 26, BUN 13, creatinine 0.82. White count 17.42, hemoglobin 14.1, hematocrit 41.6, platelet count 213. Amylase, lipase is [address] abdomen and pelvis showed pleural effusion with questionable pneumonia. ASSESSMENT: 1. ACUTE PANCREATITIS 2. RIGHT LOWER LOBE PNEUMONIA WITH PLEURAL EFFUSION 3. LEUKOCYTOSIS PLAN: 1. Duonebs 2. Zosyn 3. IV fluids 4. Dilaudid 5. Repeat Cardizem 5 mg IV push TIME SPENT: More than 35 minutes MTDD
[2017-06-10] MEDS: DILAUDID 2 MG/ML SYRINGE IVP PRN (00:08)
[2017-06-10] MEDS: SODIUM CHLORIDE 1,000 ML IV SCH ×4 (02:11→22:22)
[2017-06-10] MEDS: FLAGYL 500 MG/100 ML 500 MG in PREMIX 100 ML NS 1 BAG IV SCH ×3 (04:39→20:40)
[2017-06-10] MEDS: DUONEB NEB SCH ×4 (05:38→21:00)
[2017-06-10] MEDS: CARAFATE PO SCH ×4 (06:09→20:40)
[2017-06-10] MEDS: K-DUR PO SCH (08:45)
[2017-06-10] MEDS: ROCEPHIN 1 GM in SODIUM CHLORIDE 50 ML IV SCH (08:45)
[2017-06-10] MEDS: LOVENOX SUBCUT SCH (08:46)
[2017-06-10 09:12] LABS: BASOPHILS % (AUTO) 0.4 % (0.0-3.0); EOSINOPHILS # (AUTO) 0.4 K/ul (0.0-0.7); EOSINOPHILS % (AUTO) 3.5 % (0.0-7.0); HEMATOCRIT 31.4 % (42.0-52.0); HEMOGLOBIN 10.8 g/dl (14.0-18.0); IMMATURE GRANULOCYTE % (AUTO) 0.5 % (0.0-5.0); LYMPHOCYTES # (AUTO) 1.2 K/uL (0.60-3.4); LYMPHOCYTES % (AUTO) 11.2 (10.0-50.0); MEAN CORPUSCULAR HEMOGLOBIN 32.3 pg (27.0-31.0); MEAN CORPUSCULAR HGB CONC 34.4 (31.8-35.4); MONOCYTES # (AUTO) 0.5 K/uL (0.4-2.0); MONOCYTES % (AUTO) 5.1 (0-10); NEUTROPHILS # (AUTO) 8.4 K/ul (2.0-6.9); NEUTROPHILS % (AUTO) 79.3; PLATELET COUNT 211 10^3/uL (140-440); RED BLOOD COUNT 3.34 10^6/ul (4.70-6.10); WHITE BLOOD COUNT 10.59 K/ul (4.2-10.2)
[2017-06-10] MEDS ORDERED: DILAUDID 2 MG/ML SYRINGE IVP PRN (09:33)
[2017-06-10 09:34] LABS: ALBUMIN 2.5 g/dL (3.4-5.0); ALBUMIN/GLOBULIN RATIO 0.74; ANION GAP 12.7; BILIRUBIN,TOTAL 0.4 mg/dL (0.00-1.20); CALCIUM 8.8 mg/dL (8.2-10.2); CREATININE 0.68 mg/dL (0.60-1.10); POTASSIUM 3.7 mmol/L (3.5-5.1); TOTAL PROTEIN 5.9 g/dL (6.4-8.2)
[2017-06-10 09:35] LABS: BUN/CREATININE RATIO 13.23
[2017-06-10] MEDS: PROTONIX IV IVP SCH ×2 (09:48→20:40)
[2017-06-11] MEDS: DUONEB NEB SCH ×2 (05:08→10:26)
[2017-06-11 05:30] VITALS: BP 110/70; TEMP 98
[2017-06-11] MEDS: FLAGYL 500 MG/100 ML 500 MG in PREMIX 100 ML NS 1 BAG IV SCH (05:50)
[2017-06-11] MEDS: CARAFATE PO SCH (05:50)
[2017-06-11] MEDS: ROCEPHIN 1 GM in SODIUM CHLORIDE 50 ML IV SCH (08:45)
[2017-06-11] MEDS: K-DUR PO SCH (08:47)
[2017-06-11] MEDS: LOVENOX SUBCUT SCH (08:48)
--- NOTE | 2017-06-11 14:03 | PN ---
DATE OF SERVICE: 06/08/17 SUBJECTIVE: The patient was admitted with acute pancreatitis, still hurting, pain rated as 8 to 10 out of 10. He is passing gas. He is able to keep the clear liquids down. REVIEW OF SYSTEMS: CONSTITUTIONAL: Fever with temperature of 100. No chills. HEENT: Normal. ENDOCRINE: No weight gain, no weight loss. CVS: No angina symptoms. No CHF symptoms. No palpitations. No atypical chest pain for CAD. No shortness of breath. No PND, no orthopnea. RESPIRATORY: No cough, no hemoptysis. GI: Abdominal pain. No nausea, no vomiting. : No hematuria. No polyuria. MUSCULOSKELETAL:. No joint swelling. PSYCHIATRIC: Not anxious. No depression. No suicidal thoughts. No homicidal thoughts. SKIN: Intact. No rash. PHYSICAL EXAMINATION: V/S: BP 149/78, respiratory rate 20, heart rate 99, temperature 100. Saturation 95% on room air. HEENT: Normocephalic, atraumatic. Mucosa dry. NECK: Supple. No JVD, no carotid bruit. No lymphadenopathy. LUNGS: Decreased basilar crackles, left side more than the right. Clear to auscultation. No rales or rhonchi. HEART: S1, S2 normal. No S3. No murmur, gallop or regurgitation. ABDOMEN: Epigastric tenderness. No rigidity, guarding or CVA tenderness. EXTREMITIES: No clubbing, cyanosis or pedal edema. MUSCULOSKELETAL: No joint swelling. NEUROLOGIC: Awake, alert, oriented times three. No focal deficit. LYMPHATIC: No lymph nodes palpable. SKIN: Intact. LABS: White count 13.47, hemoglobin 12.1, hematocrit 35.4, platelet count 177. Sodium 134, potassium 3.2, chloride 97, bicarb 29, BUN 11, creatinine 0.79, glucose 115. Amylase 106, lipase 66. White count 13.47, hemoglobin 12.1, hematocrit 35.4 , platelet count 177. ASSESSMENT: 1. ACUTE PANCREATITIS 2. LEFT LOWER LOBE PNEUMONIA WITH PLEURAL EFFUSION 3. ANEMIA PLAN: 1. Will stop the Piperacillin/Tazobactam 2. Will start the patient on Rocephin and Flagyl 3. Breathing treatments 4. IV fluids 5. Out of bed to chair 6. Activity as tolerated 7. Daily I & O's TIME SPENT: More than 35 minutes today MTDD
--- NOTE | 2017-06-24 14:33 | PN ---
DATE OF SERVICE: 06/09/17 SUBJECTIVE: The patient is admitted with acute pancreatitis. Amylase and lipase is getting better. He is more active now. Left lower lobe pneumonia, coughing some. He is still having fever up to 100.2 on antibiotics. REVIEW OF SYSTEMS: CONSTITUTIONAL: Fever. No chills. HEENT: Normal. ENDOCRINE: No weight gain, no weight loss. CVS: No angina symptoms. No CHF symptoms. No palpitations. No atypical chest pain for CAD. No shortness of breath. No PND, no orthopnea. RESPIRATORY: Cough. No hemoptysis. GI: No nausea, no vomiting. No abdominal pain. : No hematuria. No polyuria. MUSCULOSKELETAL:. No joint swelling. PSYCHIATRIC: Not anxious. No depression. No suicidal thoughts. No homicidal thoughts. SKIN: Intact. No rash. PHYSICAL EXAMINATION: V/S: BP 106/62, respiratory rate 20, heart rate 87, temperature 99.6. Saturation 94 on room air. HEENT: Normocephalic, atraumatic. Mucosa dry. Pallor positive. No icterus. NECK: Supple. No JVD, no carotid bruit. No lymphadenopathy. LUNGS: Decreased basilar crackles, left more than right. No rales or rhonchi. HEART: S1, S2 normal. No S3. No murmur, gallop or regurgitation. ABDOMEN: Epigastric discomfort and tenderness present. Bowel sounds active. No rigidity. No rebound or guarding. No CVA tenderness. EXTREMITIES: No clubbing, cyanosis or pedal edema. MUSCULOSKELETAL: No joint swelling. NEUROLOGIC: Awake, alert, oriented times three. No focal deficit. LYMPHATIC: No lymph nodes palpable. SKIN: Intact. LABS: White count 11.39, hemoglobin 11.0, hematocrit 32.1, platelet count 181. Sodium 136, potassium 3.3, chloride 101, bicarb 26, BUN 8, creatinine 0.70. Amylase and lipase 37 and 34. ASSESSMENT: 1. ACUTE PANCREATITIS MOST LIKELY FROM GALLBLADDER STONES 2. CHOLELITHIASIS 3. LEFT LOWER LOBE PNEUMONIA 4. ANEMIA PLAN: 1. Continue Rocephin 2. Flagyl 3. Duonebs 4. Dilaudid for pain 5. Out of bed to chair 6. Regular diet 7. Lovenox for DVT prophylaxis TIME SPENT: More than 36 minutes MTDD
--- NOTE | 2017-06-24 14:40 | PN ---
DATE OF SERVICE: 06/10/17 SUBJECTIVE: The patient is admitted with acute pancreatitis, left lower lobe pneumonia. Breathing is some better, was able to keep food down. The patient had temperature yesterday around 2 p.m. of 100.2. After that 99.6 and 99.1. Otherwise feeling a lot better. He was able to keep the food down. REVIEW OF SYSTEMS: CONSTITUTIONAL: No fever, no chills. HEENT: Normal. ENDOCRINE: No weight gain, no weight loss. CVS: No angina symptoms. No CHF symptoms. No palpitations. No atypical chest pain for CAD. No shortness of breath. No PND, no orthopnea. RESPIRATORY: No cough, no hemoptysis. GI: No nausea, no vomiting. No abdominal pain. : No hematuria. No polyuria. MUSCULOSKELETAL:. No joint swelling. PSYCHIATRIC: Not anxious. No depression. No suicidal thoughts. No homicidal thoughts. SKIN: Intact. No rash. PHYSICAL EXAMINATION: V/S: BP 107/65, respiratory rate 16, heart rate 84, temperature 99.6, saturation 96 on room air. HEENT: Normocephalic, atraumatic. Mucosa dry. Pallor positive. No icterus. NECK: Supple. No JVD, no carotid bruit. No lymphadenopathy. LUNGS: Bilateral entry decreased and basilar crackles, left more than right. No rales or rhonchi. HEART: S1, S2 normal. No S3. No murmur, gallop or regurgitation. ABDOMEN: Soft. Epigastric discomfort is present. Bowel sounds active. No rigidity. No rebound or guarding. No CVA tenderness. EXTREMITIES: No clubbing, cyanosis or pedal edema. MUSCULOSKELETAL: No joint swelling. NEUROLOGIC: Awake, alert, oriented times three. No focal deficit. LYMPHATIC: No lymph nodes palpable. SKIN: Intact. LABS: Sodium 137, potassium 3.7, chloride 102, bicarb 26, BUN 9, creatinine 0.68, glucose 126. WBC 10.59, hemoglobin 10.8, hematocrit 31.4, platelet count 211. ASSESSMENT: 1. ACUTE PANCREATITIS MOSTLY FROM GALLSTONES 2. LEFT LOWER LOBE PNEUMONIA 3. PLEURAL EFFUSION 4. ANEMIA FROM HEMODILUTION PLAN: 1. Continue Rocephin and Flagyl. 2. IV fluids. 3. Duonebs. 4. We are trying to target a pain free period of 24 hours before discharge. TIME SPENT: More than 35 minutes MTDD
--- NOTE | 2017-06-25 11:35 | DS ---
DATE OF SERVICE: 06/11/17 FINAL DIAGNOSIS: 1. Acute pancreatitis mostly from passing gallbladder stone 2. Cholelithiasis with the pericolic fluid 3. Left lower lobe pneumonia 4. Anemia 5. Dehydration DISCHARGE INSTRUCTIONS: Discharge the patient home. Followup in the [facility] within 3-[address] Perla on June 16. Increase fluids NEW PRESCRIPTIONS: Keflex 500mg twice a day for 5 days. Prednisone 10mg twice a day for 5 days Zantac 150mg twice a day Flagyl 500mg Q 8 hours DIET INSTRUCTIONS: Low Fat Frequent small meals ACTIVITY: Get plenty of rest SMOKING: Current some day smoker DISEASE SPECIFIC EDUCATION: Pancreatitis, Diet restriction and alcohol restriction been discussed and verbalized understanding. HOSPITAL COURSE: Rufino Avilez who is a 51 year old white came to the emergency room with the severe epigastric pain, nausea and vomiting. Found to have WBC 14,000, potassium was 3.3, amylase 3,000, Lipase 14,379. CT scan did show the acute pancreatitis. At that time the patient being admitted to the hospital and started on the Dilaudid every 4 hour initially but the pain so severe we had to give ever 2 hours. IV fluids. The patient did not have any history of alcoholism so alcoholic pancreatis was not suspected. In review of Cholelithiasis on the gallbladder I expected passing Gallstone but there was no elevated total bilirubin so the patient was not transfused and the patient was admitted to the [facility] and started on the IV antibiotics. The patient was getting Zosyn from the beginning but started having the fever of 100-102 at that time antibiotic changed to the Rocephin and Flagyl. Repeat CAT scan of the abdomen showed the left lower lobe pneumonia and pleural effusion. The patient was given the breathing treatments which did gradually the patient made better. Up and about walking. Clear liquids started, tolerated then advanced to the soft diet and regular diet, did not have any complications. As patient was doing good and fever subsided. At that time patient being discharged home. TIME SPENT: MORE THAN 65 MINUTES MTDD
== END 2017-06-11 11:47 | disposition home or self-care (01) | DRG 438 ==
LOC: ED 08:12 → MEDSURG B 10:15
PROVIDERS: ADMIT Emergency Medicine; ATTEND Emergency Medicine
DX: K85.90 Acute pancreatitis without necrosis or infection, unspecified (principal); J18.1 Lobar pneumonia, unspecified organism; J91.8 Pleural effusion in other conditions classified elsewhere; K80.20 Calculus of gallbladder without cholecystitis without obstruction; E86.0 Dehydration; E87.6 Hypokalemia; D64.9 Anemia, unspecified; R50.9 Fever, unspecified; R00.0 Tachycardia, unspecified; F17.200 Nicotine dependence, unspecified, uncomplicated; Z87.442 Personal history of urinary calculi
CPT/HCPCS: 36415; 80053; 80061; 80307; 82150; 82550; 82553; 83690; 84484; 85025; 87040; 93005; 93010; 94640; 96374; 96375; 99285

== ENCOUNTER 2017-11-30 13:11 | Emergency (ER) ==
[2017-11-30 13:21] VITALS: BP 113/65; TEMP 97.1; BMI 20.3
--- NOTE | 2017-11-30 14:04 | DI ---
EXAM: RIGHT HAND, 3 VIEWS HISTORY: Right second digit infection. Additional history was fourth proximal phalanx laceration and swelling, suspect foreign body (possibly wood). FINDINGS: Compared to 05/09/2017. The second digit appears grossly normal. There is swelling of the proximal fourth digit with a discoid opacity measuring about 8 x 2 mm seen a t the dorsal aspect of this digit, at the level of the mid proximal phalanx which could represent sof t tissue asymmetry or conceivably a nonmetallic subcutaneous foreign body. No regional gas collectio n is seen. The third digit again demonstrates an avulsion fracture from the dorsal base of the distal phalanx si milar to that previously seen without healing. Bone and joint structures were otherwise within normal limits. IMPRESSION: 1. Swelling and indeterminate dorsal density at the base of the fourth digit. 2. Other findings as described.
[2017-11-30] MEDS ORDERED: MAXIPIME 2 GM in SODIUM CHLORIDE 100 ML IV STA (15:03)
--- NOTE | 2017-11-30 16:45 | ED.PDOC ---
General ED Provider: Dr. JC ARAUJO Chief Complaint: Finger Pain/Injury Stated Complaint: right ring finger pain and swelling Time Seen by Physician: 13:30 (see photos) Mode of Arrival: Walk-In Information Source: Patient Exam Limitations: No limitations Primary Care Provider: CHAI GARCIA Nursing and Triage Documentation Reviewed and Agree: Yes Reviewed sepsis parameters & appropriate labs ordered?: Yes System Inflammatory Response Syndrome: Not Applicable Sepsis Protocol: For patient's 13 years and over: Temp is 96.8 and below OR 101 and greater Pulse >90 BPM Resp >20/minute Acutely Altered Mental Status Are patient's symptoms suggestive of a new infection, such as: -Pneumonia -Skin, Soft Tissue -Endocarditis -UTI -Bone, Joint Infection -Implantable Device -Acute Abdominal Infection -Wound Infection -Meningitis -Blood Stream Catheter Infection -Unknown System Inflammatory Response Syndrome: Not Applicable Musculoskeletal Complaint Exam - Hand/Wrist Complaint/Exam Location of Pain: Reports: Right, Digit #4 Mechanism of Injury: Reports: Trauma (with sharp metal 4 days ago ) Symptoms Are: Still present Onset of Pain: Reports: Immediate Initial Severity: Moderate Current Severity: Moderate Location: Reports: Discrete (right middle finger ) Alleviating: Reports: None Aggravating: Reports: Movement Associated Signs and Symptoms: Reports: Swelling, Redness. Denies: Bruising, Fever, Weakness, Numbness, Tingling Dominant Hand: Right Related Surgical History: Reports: None Hand/Wrist Findings: Present: Swelling (see photos) Review of Systems - Review Of Systems Constitutional: Reports: No symptoms Eyes: Reports: No symptoms Ears, Nose, Mouth, Throat: Reports: No symptoms Respiratory: Reports: No symptoms Cardiac: Reports: No symptoms GI: Reports: No symptoms : Reports: No symptoms Musculoskeletal: Reports: Other (edema right middle finger ) Skin: Reports: No symptoms Neurological: Reports: No symptoms Endocrine: Reports: No symptoms Hematologic/Lymphatic: Reports: No symptoms All Other Systems: Reviewed and Negative Past Medical History - Past Medical History Previously Healthy: Yes Endocrine: Reports: None Cardiovascular: Reports: None Respiratory: Reports: None Hematological: Reports: None Gastrointestinal: Reports: None Genitourinary: Reports: None Neuro/Psych: Reports: None Musculoskeletal: Reports: Joint Pain Cancer: Reports: None Other Pertinent Past Medical History: NOSE DEVIATED SEPTUM, APPENDECTOMY, herniated disc - Surgical History General Surgical History: Reports: Appendectomy, Orthopedic (bursa sack removed right elbow.), Other (NOSE DEVIATED SEPTUM, bursa sack removed right elbow.) - Family History Family History: Reports: Unknown - Social History Smoking Status: Current some day smoker, Heavy tobacco smoker Hx Substance Use: No Alcohol Screening: None - Immunizations Tetanus Shot up to Date: Yes (within past 5 years) Physical Exam - Physical Exam Appearance: Well-appearing, No pain distress, Well-nourished Eyes: NERISSA, EOMI, Conjunctiva clear ENT: Ears normal, Nose normal, Oropharynx normal Respiratory: Airway patent, Breath sounds clear, Breath sounds equal, Respirations nonlabored Cardiovascular: RRR, Pulses normal, No rub, No murmur GI/: Tender (right middle finger see photos) Musculoskeletal: Normal strength, ROM intact, No edema, No calf tenderness Skin: Warm, Dry, Normal color Neurological: Sensation intact, Motor intact, Reflexes intact, Cranial nerves intact, Alert, Oriented Psychiatric: Affect appropriate, Mood appropriate Interpretation - Radiology Interpretation Radiology Interpretation By: Radiologist Radiology Results: Positive (postive F/B) Physician Notification - Case Discussed Physician Notified: JAYY CHU Time of Notification: 14:00 (SAW PT IN THE ED AND OPERATED AND DRAINED THE PT'S FINGER ) Critical Care Note - Critical Care Note Total Time (mins): 0 Course - Course Hematology/Chemistry: 11/30/17 13:40 11/30/17 13:40 Orders, Labs, Meds: Lab Review 11/30/17 11/30/17 13:40 13:40 WBC 10.49 H RBC 4.18 L Hgb 13.2 L Hct 38.8 L MCV 92.8 MCH 31.6 H MCHC 34.0 RDW Coeff of Rosanne 12.2 Plt Count 303 Immature Gran % (Auto) 0.3 Neut % (Auto) 57.6 Lymph % (Auto) 29.6 Upton % (Auto) 5.7 Eos % (Auto) 6.1 Baso % (Auto) 0.7 Immature Gran # (Auto) 0.0 Neut # (Auto) 6.1 Lymph # (Auto) 3.1 Upton # (Auto) 0.6 Eos # (Auto) 0.6 Baso # (Auto) 0.1 Sodium 140 Potassium 3.7 Chloride 106 Carbon Dioxide 24 Anion Gap 13.7 BUN 17 Creatinine 0.79 Estimated GFR (MDRD) 103.00 BUN/Creatinine Ratio 21.51 Glucose 98 Calcium 9.3 Total Bilirubin 0.2 AST 21 ALT 25 Alkaline Phosphatase 111 Total Protein 6.8 Albumin 3.6 Globulin 3.2 Albumin/Globulin Ratio 1.13 Orders Category Date Time Status CBC W/ AUTO DIFF Stat LAB 11/30/17 13:40 Completed COMPREHENSIVE METABOLIC PANEL Stat LAB 11/30/17 13:40 Completed WOUND CULTURE Stat LAB 11/30/17 15:03 Received Cefepime HCl [Maxipime] 2 gm MEDS 11/30/17 15:03 Discontinued 0.9 % Sodium Chloride [Sodium Chloride] 100 ml IV ONCE HAND, RIGHT 3 VIEWS Stat RADS 11/30/17 13:27 Completed Medications Discontinued Medications Generic Name Dose Route Start Last Admin Trade Name Garrettq PRN Reason Stop Dose Admin Cefepime HCl 2 gm/ Sodium 100 mls @ 100 mls/hr 11/30/17 15:03 11/30/17 15:18 Chloride IV 11/30/17 16:02 100 mls/hr ONCE STA Administration Vital Signs: Temp Pulse Resp BP Pulse Ox 11/30/17 13:12 97.1 F L 92 H 20 113/65 97 Departure - Departure Time of Disposition: 16:47 Disposition: HOME SELF-CARE Discharge Problem: Injury of finger, Pain in finger, Foreign body of right middle finger with infection Instructions: Thumb Sucking (DC), Finger Laceration (ED) Condition: Good Pt referred to PMD for follow-up: Yes IPMP verified?: No Additional Instructions: Please call your Family Physician as soon as possible to schedule a follow-up appointment.YOU MUST SEE THE SURGEON IN AM Allergies/Adverse Reactions: Allergies codeine Adverse Reaction (Verified 05/09/17 14:51) Home Medications: Ambulatory Orders 1 [No Reported Medications] 11/30/17
[2017-11-30] MEDS ORDERED: LIDOCAINE HCL 1% SDV ONE (17:26)
--- NOTE | 2017-12-11 13:48 | ER ---
DATE OF VISIT: 11/30/17 HISTORY OF PRESENT ILLNESS: 52 year old male who presented to the emergency room today because of swelling, redness and pain in the right fourth finger involving mostly the proximal phalanx, as well as the IP joint. 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 He had removed some four pieces of dark materials, plus a short piece of what appeared to be metal. The patient's finger was markedly swollen today with some purulent drainage. X-ray of the fourth finger does not show any foreign body, although the doctor had inferred that there might be. PHYSICAL EXAMINATION: The area is raised from the edematous tissue. After reviewing the x-ray, I did advise the patient that I am going to make an incision to drain the abscess, but I am not looking for a foreign body, since I do not see one on x-ray. I would review the x-ray with the radiologist this coming Thursday and see if there is anymore x-rays that would define better if there is a foreign body. Culture and sensitivity specimen was obtained before the procedure and the patient also was given 2 grams of Cefepime IV. He will be receiving this every 12 hours. PROCEDURE: The patient in a supine posture with slight head elevation was then prepped and draped for surgery. 1% Xylocaine infiltration anesthesia was utilized. Transverse incision was made over the fluctuant area. Purulent material was exuded including a chunky whitish material. No foreign body was visualized. A Seney drain tourniquet was applied because of the bleeding in order to allow better exploration and full visualization. No foreign body was identified. Some necrotic tissue is still deeper in the abscess cavity. This patient is able to flex and extent the fourth finger. The patient tolerated the procedure well and was instructed to elevate the finger above his head and he is prescribed Tramadol 50 mg to be taken every 6 hours if he needs for pain. He should elevate it above his head to avoid any pain. I should see him tomorrow after the IV Cefepime in the emergency room. Dictated By: JO ANN WATKINS MD Signed By: Co-Signed By: Dictated Date/Time: 11/30/17 5272 Transcribed Date/Time: 12/11/17 1322 Clean Room Technician: Signed Date/Time: CC: JO ANN WATKINS MD; CHAI SPAULDING ; MADDIE ORELLANA MD [facility]
== END 2017-11-30 17:00 | disposition home or self-care (01) ==
LOC: ED 13:11
DX: S61.244A Puncture wound with foreign body of right ring finger without damage to nail, initial encounter (principal); L08.9 Local infection of the skin and subcutaneous tissue, unspecified; M79.644 Pain in right finger(s); F17.210 Nicotine dependence, cigarettes, uncomplicated; W45.8XXA Other foreign body or object entering through skin, initial encounter
CPT/HCPCS: 36415; 80053; 85025; 87070; 87186; 96365; 99283

== ENCOUNTER 2017-12-01 07:31 | Outpatient (CLI) ==
[2017-11-30 13:21] VITALS: BMI 20.3
[2017-12-01 07:57] VITALS: BP 130/56; TEMP 97.4
[2017-12-01] MEDS ORDERED: MAXIPIME 2 GM in SODIUM CHLORIDE 100 ML IV STA (07:59)
== END 2017-12-01 07:32 | disposition home or self-care (01) ==
LOC: OPMED 07:31
PROVIDERS: ATTEND General Practice
DX: S60.452A Superficial foreign body of right middle finger, initial encounter (principal); L08.9 Local infection of the skin and subcutaneous tissue, unspecified
CPT/HCPCS: 96365

== ENCOUNTER 2017-12-01 18:54 | Outpatient (CLI) ==
[2017-11-30 13:21] VITALS: BMI 20.3
[2017-12-01] MEDS ORDERED: MAXIPIME 2 GM in SODIUM CHLORIDE 100 ML IV STA (19:13)
[2017-12-01 19:21] VITALS: BP 99/60; TEMP 98.6
== END 2017-12-01 18:55 | disposition home or self-care (01) ==
LOC: OPMED 18:54
PROVIDERS: ATTEND General Practice
DX: S60.452A Superficial foreign body of right middle finger, initial encounter (principal); L08.9 Local infection of the skin and subcutaneous tissue, unspecified
CPT/HCPCS: 96365

== ENCOUNTER 2017-12-02 07:27 | Outpatient (CLI) ==
[2017-12-02] MEDS ORDERED: MAXIPIME 2 GM in SODIUM CHLORIDE 100 ML IV STA (08:16)
[2017-12-02] MEDS ORDERED: VANCOMYCIN 1 GM in SODIUM CHLORIDE 250 ML IV ONE ×2 (11:52→22:57)
[2017-12-02 23:40] VITALS: BP 101/65; TEMP 98.1
== END 2017-12-02 07:28 | disposition home or self-care (01) ==
LOC: OPMED 07:27
PROVIDERS: ATTEND General Practice
DX: L02.511 Cutaneous abscess of right hand (principal); B95.62 Methicillin resistant Staphylococcus aureus infection as the cause of diseases classified elsewhere
CPT/HCPCS: 96365

== ENCOUNTER 2017-12-02 22:32 | Outpatient (CLI) ==
[2017-12-02 12:04] VITALS: BP 117/76; TEMP 98
[~2017-12-02 22:32] MED LIST: VANCOMYCIN 1 GM in SODIUM CHLORIDE 250 ML IV ONE
[2017-12-02] MEDS ORDERED: VANCOMYCIN 1 GM in SODIUM CHLORIDE 250 ML IV STA (23:11)
== END 2017-12-02 22:33 | disposition home or self-care (01) ==
LOC: OPMED 22:32
PROVIDERS: ATTEND General Practice
DX: L02.511 Cutaneous abscess of right hand (principal); B95.62 Methicillin resistant Staphylococcus aureus infection as the cause of diseases classified elsewhere
CPT/HCPCS: 96365

== ENCOUNTER 2017-12-03 10:08 | Outpatient (CLI) ==
[2017-12-03] MEDS ORDERED: VANCOMYCIN 1 GM in SODIUM CHLORIDE 250 ML IV STA (11:08)
[2017-12-03 11:14] VITALS: BP 101/68; TEMP 97.3
== END 2017-12-03 10:09 | disposition home or self-care (01) ==
LOC: FCC-LAB 10:08 → OPMED 10:09
PROVIDERS: ATTEND General Practice
DX: L02.511 Cutaneous abscess of right hand (principal); B95.62 Methicillin resistant Staphylococcus aureus infection as the cause of diseases classified elsewhere
CPT/HCPCS: 36415; 80069; 96365

== ENCOUNTER 2017-12-04 00:13 | Outpatient (CLI) ==
[2017-12-04 00:33] VITALS: BP 108/63; TEMP 97.6
[2017-12-04] MEDS ORDERED: VANCOMYCIN 1 GM in SODIUM CHLORIDE 250 ML IV STA (00:33)
== END 2017-12-04 02:50 | disposition home or self-care (01) ==
LOC: OPMED 00:13
PROVIDERS: ATTEND General Practice
DX: L02.511 Cutaneous abscess of right hand (principal); B95.62 Methicillin resistant Staphylococcus aureus infection as the cause of diseases classified elsewhere
CPT/HCPCS: 96365; 96366

== ENCOUNTER 2018-04-15 16:38 | Emergency (ER) ==
[2018-04-15 16:40] VITALS: BP 95/63; TEMP 101.4; BMI 20.7
--- NOTE | 2018-04-15 16:54 | ED.PDOC ---
General ED Provider: Dr. JC ARAUJO Chief Complaint: Back Pain Stated Complaint: back pain lumbar Time Seen by Physician: 16:45 (seen with simone at all times this is a chronic issue ,current pain x 2 to 3days ) Mode of Arrival: Walk-In Information Source: Patient Exam Limitations: No limitations Primary Care Provider: CHAI GARCIA Referred to ED by: Other (no trauma no urinary smptoms this pain same as prior back pain pt has had ) Nursing and Triage Documentation Reviewed and Agree: Yes Does patient meet sepsis criteria?: Yes If yes, has appropriate treatment been initiated?: No System Inflammatory Response Syndrome: Not Applicable Sepsis Protocol: For patient's 13 years and over: Temp is 96.8 and below OR 101 and greater Pulse >90 BPM Resp >20/minute Acutely Altered Mental Status Are patient's symptoms suggestive of a new infection, such as: -Pneumonia -Skin, Soft Tissue -Endocarditis -UTI -Bone, Joint Infection -Implantable Device -Acute Abdominal Infection -Wound Infection -Meningitis -Blood Stream Catheter Infection -Unknown Musculoskeletal Complaint Exam - Back Pain Complaint/Exam Mechanism of Injury: Reports: No known trauma Onset/Duration: chronic issue Symptoms Are: Still present Timing: Constant Initial Severity: Moderate Current Severity: Mild Location: Reports: Discrete Character: Reports: Dull, Aching, Throbbing, Spasmodic Aggravating: Reports: Movements, Lifting, Bending, Walking Alleviating: Reports: Rest, Position Associated Signs and Symptoms: Denies: Swelling, Redness, Bruising, Fever, Weakness, Numbness, Tingling, Abdominal pain, Flank pain, Bladder incontinence, Bowel incontinence, Weight loss, Pain with weight bearing Related History: Reports: Similar episode TAD Risk Factors: Reports: None AAA Risk Factors: Reports: None Cauda Equina Risk Factors: Reports: None Epidural Abcess Risk Factors: Reports: None Related Surgical History: Reports: None Focal Tenderness: Yes Paraspinal Muscle Tenderness: No Paraspinal Muscle Spasm: No Scoliosis: No Lordosis: No Kyphosis: No SLR Test: Right Negative, Left Negative Hip Motion Testing Pain: Right Negative, Left Negative Focal Weakness: Present: None Focal Sensory Loss: Present: None Gait: Present: Normal Differential Diagnoses: Strain, Sprain Review of Systems - Review Of Systems Constitutional: Reports: No symptoms Eyes: Reports: No symptoms Ears, Nose, Mouth, Throat: Reports: No symptoms Respiratory: Reports: No symptoms Cardiac: Reports: No symptoms GI: Reports: No symptoms : Reports: No symptoms Musculoskeletal: Reports: Back pain Skin: Reports: No symptoms Neurological: Reports: No symptoms Endocrine: Reports: No symptoms Hematologic/Lymphatic: Reports: No symptoms All Other Systems: Reviewed and Negative Past Medical History - Past Medical History Previously Healthy: Yes Endocrine: Reports: None Cardiovascular: Reports: None Respiratory: Reports: None Hematological: Reports: None Gastrointestinal: Reports: None Genitourinary: Reports: None Neuro/Psych: Reports: None Musculoskeletal: Reports: Joint Pain Cancer: Reports: None Other Pertinent Past Medical History: NOSE DEVIATED SEPTUM, APPENDECTOMY, herniated disc - Surgical History General Surgical History: Reports: Appendectomy, Orthopedic (bursa sack removed right elbow.), Other (NOSE DEVIATED SEPTUM, bursa sack removed right elbow.) - Family History Family History: Reports: Unknown - Social History Smoking Status: Current some day smoker, Heavy tobacco smoker Hx Substance Use: No Alcohol Screening: None - Immunizations Tetanus Shot up to Date: Yes Physical Exam - Physical Exam Appearance: Well-appearing, No pain distress, Well-nourished Eyes: NERISSA, EOMI, Conjunctiva clear ENT: Ears normal, Nose normal, Oropharynx normal Respiratory: Airway patent, Breath sounds clear, Breath sounds equal, Respirations nonlabored Cardiovascular: RRR, Pulses normal, No rub, No murmur GI/: Soft, Nontender, No masses, Bowel sounds normal, No Organomegaly Musculoskeletal: Normal strength, ROM intact, No edema, No calf tenderness Skin: Warm, Dry, Normal color Neurological: Sensation intact, Motor intact, Reflexes intact, Cranial nerves intact, Alert, Oriented Psychiatric: Affect appropriate, Mood appropriate Critical Care Note - Critical Care Note Total Time (mins): 0 Course - Course Vital Signs: Temp Pulse Resp BP Pulse Ox 04/15/18 16:38 101.4 F H 99 H 16 95/63 97 Departure - Departure Time of Disposition: 16:53 Disposition: HOME SELF-CARE Discharge Problem: Low back pain Qualifiers: Chronicity: acute Back pain laterality: right Sciatica presence: without sciatica Qualified Code(s): M54.5 - Low back pain Instructions: Chronic Back Pain (ED), Lower Back Exercises (ED), Acute Low Back Pain (ED) Condition: Good Pt referred to PMD for follow-up: Yes IPMP verified?: No Additional Instructions: Please call your Family Physician as soon as possible to schedule a follow-up appointment. Prescriptions: Hydrocodone/Acetaminophen [[place] 10-325 Tablet] 1 each PO Q8HR #7 tablet Allergies/Adverse Reactions: Allergies codeine Adverse Reaction (Verified 04/15/18 16:40) Home Medications: Ambulatory Orders Hydrocodone/Acetaminophen [[place] 10-325 Tablet] 1 each PO Q8HR #7 tablet Ranitidine HCl [Zantac] 150 mg PO BID 04/15/18 Disposition Discussed With: Patient, Family
== END 2018-04-15 17:14 | disposition home or self-care (01) ==
LOC: ED 16:38
DX: M54.5 Low back pain (principal); G89.29 Other chronic pain; F17.210 Nicotine dependence, cigarettes, uncomplicated
CPT/HCPCS: 99282

== ENCOUNTER 2018-04-23 10:34 | Outpatient (CLI) | payer OTHER ==
--- NOTE | 2018-04-23 15:12 | DI ---
Exam: Lumbar spine five views History: Back pain FINDINGS: Lumbar spine shows normal alignment. Wedge deformity of T12 progressive from 06/07/2017. Approximately 10 mm anterior height loss of T12. Vertebral body height is maintained in the lumbar l evels. Minor endplate spondylosis and facet degenerative change. No suspicious bony lesions are see n. Impression: Minimal endplate degenerative change of the lumbar spine. No acute lumbar abnormalities. T12 wedge deformity progressive from 06/07/2017.
== END 2018-04-23 10:35 | disposition home or self-care (01) ==
LOC: RAD 10:34
PROVIDERS: ATTEND Family Medicine
DX: M54.5 Low back pain (principal)

== ENCOUNTER 2018-04-28 09:27 | Outpatient (CLI) ==
--- NOTE | 2018-04-28 12:30 | MRI ---
EXAM: MRI thoracic spine without IV contrast. DATE: 04/28/2018. HISTORY: Deformity door. Thoracic back pain. TECHNIQUE: Sagittal and axial T1W and T2W sequences of the thoracic spine along with sagittal IR and coronal T2W sequences were obtained using 1.2 [place] magnet. No IV contrast. COMPARISON: LS spine series [address] chest 05 June 2017. 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 Cervical vertebra are normal in height. Bone marrow signal is normal. Posterior disc/osteophyte complexes at multiple cervical levels appeared cause mild C3-4, mild C4-5, moderate C5-6, and marked C6-7 central canal stenosis. No cervical cord edema, syrinx, myelomalacia, or neoplasm is evident. Visible brainstem and cerebellum are unremarkable. No distinct neck mass o r lymphadenopathy is demonstrated. There are 12 thoracic vertebra with paired ribs. Mild to moderate kyphotic curvature is present with the apex of curvature near T10-11. Minor leftward curvature the mid/lower thoracic spine is evident . Minor anterior wedge appearance of the T11 T12 vertebral bodies is chronic. Minor osteophytes are seen within the lower T-spine. Chronic Schmorl's node is evident at the T9 the inferior endplate. No acute T-spine fracture, subluxation, osseous malignancy, or jumped facet is apparent. Thoracic ve rtebra are normal in height. Bone marrow signal is overall normal. Intervertebral discs are normal in height. Conus medullaris terminates at L1. No cord edema, syrinx, myelomalacia, or neoplasm is i dentified. Visible trachea, thyroid gland, thoracic esophagus, and thoracic aorta are unremarkable. No acute ri b fracture, rib lesion, paraspinal mass or chest wall malignancy is evident. Areas of scar tissue an d emphysematous lucencies in both lung apices are similar to the May [address] scan. Visibl e portions of the liver, spleen, and adrenal glands reveal no abnormality. A T2W bright, T1W dark, 5 .7 mm medial subcapsular lesion in the upper pole cortex left kidney and a similar 6 mm subcapsular f ocus in the posterior cortex midzone right kidney are not fully characterized. Mild right and minor l eft AC joint arthritis is evident. No shoulder dislocation or malignancy detected. Segmental analysis: C7-T1: Normal. T1-2: Normal. T2-3: Normal. T3-4: Midline to left paracentral disc protrusion does not contact the cord or cause cord compressio n, central stenosis or foraminal stenosis. T4-5: Normal. T5-6: Left paracentral disc protrusion (2.1 mm AP x 8 mm transverse) does not cause cord compression , central stenosis or foraminal stenosis. T6-7: No disc protrusion or central stenosis. Moderate left foraminal stenosis is due to mild left facet arthropathy. T7-8: Normal. T8-9: Normal. T9-10: Normal. T10-11: No disc protrusion or central stenosis. Minor left foraminal narrowing is due to minor face t arthropathy.. T11-12: Normal. T12-L1: Normal. L1-2: Normal. IMPRESSIONS: 1. Thoracic spine mild/moderate kyphosis, minor leftward curvature, mild facet arthropathy, and latisha r DDD. 2. No thoracic cord compression or central canal stenosis. 3. Moderate T6-7 and minor T10-11 foraminal stenoses. 4. Bilateral renal T2W bright foci - statistically likely to be simple cysts, but not fully characte rized.
== END 2018-04-28 09:28 | disposition home or self-care (01) ==
LOC: RAD 09:27
PROVIDERS: ATTEND Family Medicine
DX: M43.9 Deforming dorsopathy, unspecified (principal); M54.6 Pain in thoracic spine; G89.29 Other chronic pain

== ENCOUNTER 2018-04-30 12:22 | Outpatient (CLI) | payer OTHER | END 2018-04-30 12:23 | disposition home or self-care (01) | LOC: FCC-LAB 12:22 | PROVIDERS: ATTEND Family Medicine | DX: M54.6 Pain in thoracic spine (principal); G89.29 Other chronic pain; Z51.81 Encounter for therapeutic drug level monitoring | CPT/HCPCS: 80306 ==

== ENCOUNTER 2019-02-25 13:54 | Emergency (ER) ==
[2019-02-25 14:04] VITALS: BP 93/61; TEMP 97.6; BMI 19.1
[2019-02-25] MEDS ORDERED: SODIUM CHLORIDE 1,000 ML IV STA (14:21)
[2019-02-25] MEDS ORDERED: ASPIRIN EC PO STA (14:22)
--- NOTE | 2019-02-25 16:25 | CT ---
Exam: CT of the chest with intravenous contrast, PE protocol with 3-D MIP reformatted imaging. Comparison: 06/05/2017. Reason for exam: Pain. FINDINGS: No main, proximal, or segmental pulmonary arterial filling defect is seen. Ground-glass nodularity in both apices with emphysematous changes bilaterally. Ground-glass nodulari ty in the right apex that appears increased new and increased in size when compared to previous imagi ng performed on 06/05/2017. No pneumothorax or pleural effusion. The aorta is normal in course and caliber. The heart is not enlarged. The gallbladder has been removed. Prominent appearing lymph nodes are seen in both the left and right axilla measuring up to 1.7 cm adal aterally. These lymph nodes appear similar to slightly larger when compared to the previous exam whe re the same lymph nodes measuring approximately 1.3 cm on the right and 1.7 cm on the left. No suspicious appearing osteoblastic or osteolytic lesions. Impression: 1. No main, proximal, or segmental pulmonary arterial filling defect 2. New and increasing ground-glass nodularity in both apices, right more so than left. Findings can be seen with inflammation, infection, scarring, granulomas disease, or neoplasia. Recommend 3-month follow-up imaging of the chest to document stability. 3. Enlarging right axillary and similar appearing left axillary lymph nodes when compared to imaging performed on 06/05/2017. Recommend follow up imaging to document stability.
--- NOTE | 2019-02-25 17:02 | ED.PDOC ---
General ED Provider: Dr. JC ARAUJO Chief Complaint: Shoulder Pain/Injury Stated Complaint: LEFT SHOULDER NECK PAIN AFTER LIFTING A HEAVY OBJECT . THE PAIN IS REPRODUCEABLE Time Seen by Physician: 14:00 (FANNIE PRESENT AT ALL TIME) Mode of Arrival: Walk-In Information Source: Patient Exam Limitations: No limitations Primary Care Provider: [facility] Nursing and Triage Documentation Reviewed and Agree: Yes Does patient meet sepsis criteria?: No System Inflammatory Response Syndrome: Not Applicable Sepsis Protocol: For patient's 13 years and over: Temp is 96.8 and below OR 101 and greater Pulse >90 BPM Resp >20/minute Acutely Altered Mental Status Are patient's symptoms suggestive of a new infection, such as: -Pneumonia -Skin, Soft Tissue -Endocarditis -UTI -Bone, Joint Infection -Implantable Device -Acute Abdominal Infection -Wound Infection -Meningitis -Blood Stream Catheter Infection -Unknown Cardiovascular Complaint Exam - Chest Pain Complaint/Exam Onset: Sudden (AFTER LIFTING A HEAVY OBJECT) Duration: 1 DAY AGO Symptoms Are: Still present Timing: Constant Length of Chest Pain Episodes: 1 DAY Initial Severity: Mild Current Severity: Mild Location: Reports: Discrete (LEFT SHOULDER , THE PAIN IS REPRODUCEABLE IN EXACT NATURE ) Pain Radiates: Reports: Back, Left shoulder, Neck Character: Reports: Aching Aggravating: Reports: None Alleviating: Reports: None Associated Signs and Symptoms: Denies: Diaphoresis, Nausea, Vomiting, Fever, Palpitations, Cough, Hemoptysis, Back pain, Abdominal pain, Dizziness, Short of air, Calf pain, Calf swelling Related Surgical History: Reports: None History of Healthcare-Acquired Pneumonia: Reports: No AMI/ACS Risk Factors: Reports: None TAD Risk Factors: Reports: None Pulmonary Embolism Risk Factors: Reports: None Prior Care for this Complaint: No Recent Stress Test: No Recent Echo/LV Function: No JVD Present: No Subcutaneous Emphysema Present: No Diminshed Breath Sounds: No Reproducible Chest Wall Pain: No Bilateral Pulses Present: No Unequal Pulses Noted: No If Risk Factors for AMI/ACS Consider: EKG, Cardiac Enzymes Differential Diagnoses: Chest Wall Pain Quality Indicators For Acute GA or Cardiac Chest Pain: EKG in 10min. Review of Systems - Review Of Systems Constitutional: Reports: No symptoms Eyes: Reports: No symptoms Ears, Nose, Mouth, Throat: Reports: No symptoms Respiratory: Reports: No symptoms Cardiac: Reports: No symptoms GI: Reports: No symptoms : Reports: No symptoms Musculoskeletal: Reports: Other (CHEST WALL PAIN) Skin: Reports: No symptoms Neurological: Reports: No symptoms Endocrine: Reports: No symptoms Hematologic/Lymphatic: Reports: No symptoms All Other Systems: Reviewed and Negative Past Medical History - Past Medical History Previously Healthy: Yes Endocrine: Reports: None Cardiovascular: Reports: None Respiratory: Reports: None Hematological: Reports: None Gastrointestinal: Reports: None Genitourinary: Reports: None Neuro/Psych: Reports: None Musculoskeletal: Reports: Joint Pain Cancer: Reports: None Other Pertinent Past Medical History: NOSE DEVIATED SEPTUM, APPENDECTOMY, herniated disc - Surgical History General Surgical History: Reports: Appendectomy, Orthopedic (bursa sack removed right elbow.), Other (NOSE DEVIATED SEPTUM, bursa sack removed right elbow.) - Family History Family History: Reports: Unknown - Social History Smoking Status: Current some day smoker, Heavy tobacco smoker Hx Substance Use: No Alcohol Screening: None Physical Exam - Physical Exam Appearance: Well-appearing, No pain distress, Well-nourished Eyes: NERISSA, EOMI, Conjunctiva clear ENT: Ears normal, Nose normal, Oropharynx normal Respiratory: Airway patent, Breath sounds clear, Breath sounds equal, Respirations nonlabored Cardiovascular: RRR, Pulses normal, No rub, No murmur GI/: Soft, Nontender, No masses, Bowel sounds normal, No Organomegaly Musculoskeletal: Normal strength, ROM intact, No edema, No calf tenderness Skin: Warm, Dry, Normal color Neurological: Sensation intact, Motor intact, Reflexes intact, Cranial nerves intact, Alert, Oriented Psychiatric: Affect appropriate, Mood appropriate Interpretation - Radiology Interpretation Radiology Interpretation By: Radiologist Radiology Results: No acute changes Exam Interpreted: CT Scan (NO P.E. ADRENAL ADENOMA . 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 Rhythm: Sinus Ectopy: None Critical Care Note - Critical Care Note Total Time (mins): 0 Course - Course Hematology/Chemistry: 02/25/19 14:34 02/25/19 14:34 Orders, Labs, Meds: Lab Review 02/25/19 02/25/19 02/25/19 14:34 14:34 14:34 WBC 9.79 RBC 4.30 L Hgb 14.0 Hct 40.9 L MCV 95.1 H MCH 32.6 H MCHC 34.2 RDW Coeff of Rosanne 12.3 Plt Count 286 Immature Gran % (Auto) 0.2 Neut % (Auto) 55.9 Lymph % (Auto) 30.7 [place] % (Auto) 4.5 Eos % (Auto) 7.9 H Baso % (Auto) 0.8 Immature Gran # (Auto) 0.0 Neut # (Auto) 5.5 Lymph # (Auto) 3.0 [place] # (Auto) 0.4 Eos # (Auto) 0.8 H Baso # (Auto) 0.1 D-Dimer (Manual) 300.55 Sodium 136.9 Potassium 3.68 Chloride 105.2 Carbon Dioxide 27.3 Anion Gap 8.08 BUN 13.9 Creatinine 0.86 Estimated GFR (MDRD) 93.00 BUN/Creatinine Ratio 16.16 Glucose 100.1 Calcium 8.99 Total Bilirubin 0.44 AST 23.3 ALT 17.9 Alkaline Phosphatase 102.6 Total Creatine Kinase 90.5 Troponin I < 0.012 Total Protein 7.15 Albumin 4.36 Globulin 2.79 Albumin/Globulin Ratio 1.56 Orders Category Date Time Status EKG-(ED ONLY) Stat CARDIO 02/25/19 14:21 Completed NPO REMINDER: IMAGING ONCE CARE 02/25/19 14:21 Completed ED IV/MEDIPORT/POWERPORT .ONCE EMERGENCY 02/25/19 14:21 Active CBC W/ AUTO DIFF Stat LAB 02/25/19 14:34 Completed COMPREHENSIVE METABOLIC PANEL Stat LAB 02/25/19 14:34 Completed CREATINE KINASE Stat LAB 02/25/19 14:34 Completed D-DIMER Stat LAB 02/25/19 14:34 Completed TROPONIN I Stat LAB 02/25/19 14:34 Completed 0.9 % Sodium Chloride [Saline Flush] MEDS 02/25/19 14:20 Active 1 syr IVF PRN PRN Aspirin [Aspirin EC] MEDS 02/25/19 14:22 Discontinued 325 mg PO ONCE STA Sodium Chloride 0.9% [Sodium Chloride] 1,000 ml MEDS 02/25/19 14:[address] CHEST PE PROTOCOL Stat RADS 02/25/19 14:21 Completed Medications Generic Name Dose Route Start Last Admin Trade Name Freq PRN Reason Stop Dose Admin Sodium Chloride 1 syr 02/25/19 14:20 02/25/19 14:36 Saline Flush IVF 1 syr PRN PRN Administration To flush IV Discontinued Medications Generic Name Dose Route Start Last Admin Trade Name Rl PRN Reason Stop Dose Admin Aspirin 325 mg 02/25/19 14:22 02/25/19 14:35 Aspirin Ec PO 02/25/19 14:23 325 mg ONCE STA Administration Sodium Chloride 1,000 mls @ 1,000 mls/hr 02/25/19 14:21 02/25/19 14:35 Sodium Chloride IV 02/25/19 15:20 1,000 mls/hr BOLUS STA Administration Vital Signs: Temp Pulse Resp BP Pulse Ox 02/25/19 13:54 97.6 F 92 H 18 93/61 96 BREANA Risk Score BREANA Risk Score: Risk Score Odds of by 30D 0 0.1 (0.1-0.2) 1 0.3 (0.2-0.3) 2 0.4 (0.3-0.5) 3 0.7 (0.6-0.9) 4 1.2 (1.0-1.5) 5 2.2 (1.9-2.6) 6 3.0 (2.5-3.6) 7 4.8 (3.8-6.1) Departure - Departure Time of Disposition: 17:03 Disposition: HOME SELF-CARE Discharge Problem: Shoulder pain, Chest wall pain Instructions: Thoracic Pain (ED), Chest Wall Pain (ED) Condition: Good Pt referred to PMD for follow-up: Yes IPMP verified?: No Additional Instructions: Please call your Family Physician as soon as possible to schedule a follow-up appointment.TALK TO YOUR MD ABOUT THE ADRENAL ISSUE THAT WE DISCUSSED THIS ISSUE REQUIRES A CT IN 3 MONTHS Allergies/Adverse Reactions: Allergies codeine Adverse Reaction (Verified 02/25/19 13:57) Home Medications: Ambulatory Orders Ranitidine HCl [Zantac] 150 mg PO BID 04/15/18
== END 2019-02-25 17:12 | disposition home or self-care (01) ==
LOC: ED 13:54
DX: M25.512 Pain in left shoulder (principal); R07.89 Other chest pain; M54.2 Cervicalgia; X50.0XXA Overexertion from strenuous movement or load, initial encounter; D35.00 Benign neoplasm of unspecified adrenal gland; F17.210 Nicotine dependence, cigarettes, uncomplicated
CPT/HCPCS: 36415; 80053; 82550; 84484; 85025; 85379; 93005; 93010; 96360; 99283